=== PATIENT | male | born 1995 | race Caucasian/White ===

== ENCOUNTER 2017-07-10 16:18 | Inpatient (IN) | payer MEDICAID, OTHER ==
[~2017-07-10] VITALS: Ht 170.2 cm; Wt 62.1 kg
[2017-07-10] VITALS (14 sets, daily range): BP systolic 87–124; BP diastolic 35–59; PULSE 84–110; RESP 18–27; Ht 170.2 cm; Wt 62.1 kg
[~2017-07-10 16:18] MED LIST: CEFAZOLIN 1 GM INJ ONE; metroNIDAZOLE 500 MG/100 ML NS IVPB ONE
[2017-07-10] MEDS ORDERED: ONDANSETRON 4 MG INJ IV STA (17:35)
[2017-07-10] MEDS ORDERED: morphine 4 MG/ML VIAL IV STA (17:35)
[2017-07-10] MEDS ORDERED: SOD CHLORIDE 0.9% 1,000 ML IV STA (17:35)
--- NOTE | 2017-07-10 17:39 | ERD ---
ER Documentation Chief Complaint Chief Complaint RLQ PAIN RADIATING TO GROIN W/VOMITTING SINCE AM HPI This 22-year-old male patient presents to emergency department today for evaluation of sudden onset of RLQ pain with vomiting , pt reports hot and cold chills . denies hx of ABD pain 8/10 on pain scale ROS All systems reviewed and are negative except as per history of present illness. Allergies Allergies: Coded Allergies: No Known Allergy (Unverified , 07/10/17) PMhx/Soc Medical and Surgical Hx: pt denies Medical Hx, pt denies Surgical Hx History of Surgery: No Anesthesia Reaction: No Hx Neurological Disorder: No Hx Respiratory Disorders: No Hx Cardiac Disorders: No Hx Psychiatric Problems: No Hx Miscellaneous Medical Probl: No Hx Alcohol Use: No Hx Substance Use: No Hx Tobacco Use: No Smoking Status: Never smoker Physical Exam Vitals Vital Signs Date Time Temp Pulse Resp B/P Pulse Ox O2 Delivery O2 Flow Rate FiO2 07/10/17 16:25 97.9 84 16 107/64 98 Physical Exam Const: Well-appearing, 22-year-old male patient with dry mucous membranes, obvious discomfort, no acute distress Head: Eyes: Normal Conjunctiva ENT: Normal External Ears, Nose and Mouth. Neck: Resp: Clear to auscultation bilaterally Cardio: Regular rate and rhythm, no murmurs Abd: Abdomen is symmetric, distended, tympanic to percussion, positive McBurney's point tenderness, psoas sign positive Skin: Back: No midline or flank tenderness Ext: Neur: Awake and alert Psych: Normal Mood and Affect Result Diagram: 07/10/17 1439 07/10/17 1439 Results 24 hrs Laboratory Tests Test 07/10/17 14:39 07/10/17 17:45 White Blood Count 21.010^3/ul Red Blood Count 4.8610^6/ul Hemoglobin 16.0g/dl Hematocrit 44.0% Mean Corpuscular Volume 90.5fl Mean Corpuscular Hemoglobin 32.9pg Mean Corpuscular Hemoglobin Concent 36.4g/dl Red Cell Distribution Width 12.0% Platelet Count 71583^3/UL Mean Platelet Volume 10.4fl Neutrophils % 91.3% Lymphocytes % 2.9% Monocytes % 5.3% Eosinophils % 0.0% Basophils % 0.1% Nucleated Red Blood Cells % 0.0/100WBC Neutrophils # 19.210^3/ul Lymphocytes # 0.610^3/ul Monocytes # 1.110^3/ul Eosinophils # 0.010^3/ul Basophils # 0.010^3/ul Nucleated Red Blood Cells # 0.010^3/ul Sodium Level 146mmol/L Potassium Level 4.0mmol/L Chloride Level 103mmol/L Carbon Dioxide Level 27mmol/L Anion Gap 20 Blood Urea Nitrogen 8mg/dl Creatinine 0.72mg/dl Glucose Level 104mg/dl Calcium Level 10.2mg/dl Total Bilirubin 0.7mg/dl Direct Bilirubin 0.00mg/dl Indirect Bilirubin 0.7mg/dl Aspartate Amino Transf (AST/SGOT) 36IU/L Alanine Aminotransferase (ALT/SGPT) 57IU/L Alkaline Phosphatase 85IU/L Total Protein 8.5g/dl Albumin 5.1g/dl Globulin 3.40g/dl Albumin/Globulin Ratio 1.50 Lipase 79U/L Urine Color YELLOW Urine Clarity CLEAR Urine pH 8.0 Urine Specific [place] 1.020 Urine Ketones NEGATIVEmg/dL Urine Nitrite NEGATIVEmg/dL Urine Bilirubin NEGATIVEmg/dL Urine Urobilinogen NEGATIVEmg/dL Urine Leukocyte Esterase NEGATIVELeu/ul Urine Microscopic RBC 0/HPF Urine Microscopic WBC 0/HPF Urine Mucus MODERATE/HPF Urine Hemoglobin NEGATIVEmg/dL Urine Glucose NEGATIVEmg/dL Urine Total Protein 1+mg/dl Current Medications Medications (Trade) Dose Ordered Sig/Royce Route PRN Reason Start Time Stop Time Status Last Admin Dose Admin Sodium Chloride (NS) 1,000 ml @ 1,000 mls/hr Q1H STAT IV 07/10/17 17:35 07/10/17 18:34 DC 07/10/17 17:46 Morphine Sulfate (morphine) 4 mg ONCE STAT IV 07/10/17 17:35 07/10/17 17:40 DC 07/10/17 17:46 Ondansetron HCl (Zofran Inj) 4 mg ONCE STAT IV 07/10/17 17:35 07/10/17 17:40 DC 07/10/17 17:45 Famotidine 20 mg 20 mg ONCE ONCE IV 07/10/17 18:00 07/10/17 18:01 DC 07/10/17 17:45 Ceftriaxone Sodium 50 ml @ 100 mls/hr ONCE ONCE IVPB 07/10/17 19:00 11/20/17 19:29 Metronidazole 100 ml @ 100 mls/hr ONCE ONCE IVPB 07/10/17 19:00 07/10/17 19:59 Sodium Chloride (NS) 1,000 ml @ 1,000 mls/hr Q1H ONCE IV 07/10/17 19:00 07/10/17 19:59 Ondansetron HCl (Zofran Inj) 4 mg BRIDGE ORDER PRN IV NAUSEA AND/OR VOMITING 07/10/17 19:00 07/11/17 18:59 Acetaminophen (Tylenol Tab) 650 mg ER BRIDGE PRN PO MILD PAIN/FEVER 07/10/17 19:00 07/11/17 18:59 Interpretation text CBC shows no evidence of hemorrhage WBCs are 21 with a left shift. Chemistry shows no evidence of significant electrolyte abnormalities or renal insufficiency Liver function tests shows no evidence of acute biliary or hepatic dysfunction Lipase shows no evidence of acute pancreatitis Urinalysis negative for evidence of infection, positive for anuria this is not an abnormal finding with fasting. Procedures/MDM PROCEDURE: US Abdomen. CLINICAL INDICATION: Abdominal pain TECHNIQUE: Multiple real-time images were acquired of the patient's abdomen and right lower quadrant utilizing a high resolution transducer. COMPARISON: None FINDINGS: There is a noncompressible fluid-filled structure in the right lower quadrant measuring 9 mm, suspicious for a dilated fluid filled appendix. No free fluid is identified. RPTAT: AA IMPRESSION: Ultrasound findings suspicious for acute appendicitis. Electronically viewed and signed by Isaac Degroot Physician on 07/10/2017 18:33 This 22-year-old male patient presents to emergency department for evaluation of right lower quadrant abdominal pain, patient reports symptoms started this morning and progressively worsened all day. Patient has vomited numerous times , he reports he has not been able to eat without vomiting, reports tactile fever with cold chills, states he feels dehydrated. Emergency room course includes history and physical exam, abdomen exam is positive for suspected appendicitis, psoas sign positive, McBurney's point tenderness. Plan to work patient up for an acute abdomen, diagnostic serology, IV fluids, pain medication , antiemetic, and H2 linda. WBCs elevated to 21 with left shift, radiologist' s interpretation of ultrasound, ultrasound findings suspicious for acute appendicitis. This case discussed with supervising physician Dr. Obrien, Dr. Obrien will call surgery planned for admission, plan of care discussed with patient, he verbalizes understanding and agrees with plan of care, [id number] PACU comes to picking supervisor patient. Departure Diagnosis: Primary Impression: Appendicitis Appendicitis type: acute appendicitis Acute appendicitis type: unspecified acute appendicitis type Qualified Code: K35.80 - Acute appendicitis, unspecified acute appendicitis type Condition: Good DARLINGZULEMA Jul 10, 2017 17:39
[2017-07-10] MEDS ORDERED: FAMOTIDINE 20 MG INJ IV ONE (18:00)
[2017-07-10 18:09] LABS: BASOPHILS % 0.1 % (0.0-2.0); LYMPHOCYTES # 0.6 10^3/ul (0.8-2.9); LYMPHOCYTES % 2.9 % (18.0-55.0); MEAN CORPUSCULAR HEMOGLOBIN 32.9 pg (29.0-33.0); MEAN CORPUSCULAR HGB CONC 36.4 g/dl (32.0-37.0); MEAN CORPUSCULAR VOLUME 90.5 fl (72.0-104.0); MEAN PLATELET VOLUME 10.4 fl (7.4-10.4); MONOCYTE # 1.1 10^3/ul (0.3-0.9); MONOCYTES % 5.3 % (0.0-13.0); NEUTROPHIL # 19.2 10^3/ul (1.6-7.5); NEUTROPHILS % 91.3 % (30.0-74.0); PLATELET COUNT 223 10^3/UL (140-415); RED BLOOD COUNT 4.86 10^6/ul (4.70-6.10)
[2017-07-10 18:13] LABS: ADD UMIC YES; UR ASCORBIC ACID NEGATIVE (NEGATIVE); UR BILIRUBIN (Dip) NEGATIVE (NEGATIVE); UR BLOOD (Dip) NEGATIVE (NEGATIVE); UR CLARITY CLEAR (CLEAR); UR COLOR YELLOW (YELLOW); UR GLUCOSE (Dip) NEGATIVE (NEGATIVE); UR KETONES (Dip) NEGATIVE (NEGATIVE); UR LEUKOCYTE ESTERASE (Dip) NEGATIVE Leu/ul (NEGATIVE); UR MUCUS MODERATE /HPF (NONE SEEN); UR NITRITE (Dip) NEGATIVE (NEGATIVE); UR RBC 0 /HPF (0-5); UR TOTAL PROTEIN (Dip) 1+ mg/dl (NEGATIVE); UR UROBILINOGEN (Dip) NEGATIVE (NEGATIVE)
[2017-07-10 18:32] LABS: ALBUMIN 5.1 g/dl (3.3-4.9); ALBUMIN/GLOBULIN RATIO 1.5; BILIRUBIN,INDIRECT 0.7 mg/dl (0-1.1); BILIRUBIN,TOTAL 0.7 mg/dl (0.2-1.3); CALCIUM 10.2 mg/dl (8.4-10.2); CREATININE 0.72 mg/dl (0.61-1.24); TOTAL PROTEIN 8.5 g/dl (6.1-8.1)
--- NOTE | 2017-07-10 18:33 | RADRPT ---
PROCEDURE: US Abdomen. CLINICAL INDICATION: Abdominal pain TECHNIQUE: Multiple real-time images were acquired of the patient's abdomen and right lower quadra nt utilizing a high resolution transducer. COMPARISON: None FINDINGS: There is a noncompressible fluid-filled structure in the right lower quadrant measuring 9 mm, suspic ious for a dilated fluid filled appendix. No free fluid is identified. RPTAT: AA IMPRESSION: Ultrasound findings suspicious for acute appendicitis. Physician Linda Date Time Electronically viewed and signed by Isaac Degroot Physician on 07/10/2017 18:33 RA/
[2017-07-10] MEDS ORDERED: CEFTRIAXONE 1 GM/50 ML (PMX) 50 ML IVPB ONE (19:00)
[2017-07-10] MEDS ORDERED: ONDANSETRON 4 MG INJ IV PRN ×3 (19:00→20:00)
[2017-07-10] MEDS ORDERED: SOD CHLORIDE 0.9% 1,000 ML IV ONE (19:00)
[2017-07-10] MEDS ORDERED: ACETAMINOPHEN 325 MG TAB PO PRN ×3 (19:00→20:00)
[2017-07-10] MEDS ORDERED: metroNIDAZOLE 500 MG/NS (PMX) 100 ML IVPB ONE (19:00)
[2017-07-10] MEDS ORDERED: LIDOCAINE 1%/EPI 30 ML INJ ONE (19:07)
[2017-07-10] MEDS ORDERED: BUPIVACAINE 0.25% (MPF) 30 ML INJ ONE (19:07)
[2017-07-10] MEDS ORDERED: SOD CHLORIDE 0.9% 1,000 ML IV SCH (19:20)
[2017-07-10] MEDS ORDERED: DOCUSATE SODIUM 100 MG CAP PO PRN (19:30)
[2017-07-10] MEDS ORDERED: HYDROCODONE/APAP (5/325) TAB PO PRN ×2 (19:30→20:00)
[2017-07-10] MEDS ORDERED: NA PHOSPHATE/BIPHOS 133 ML ENEMA PR PRN (19:30)
[2017-07-10] MEDS ORDERED: MAGNESIUM HYDROXIDE 30ML CUP PO PRN (19:30)
[2017-07-10] MEDS ORDERED: ALBUTEROL/IPRATROPIUM (NEB) 3 ML AMP HHN PRN (19:30)
[2017-07-10] MEDS ORDERED: hydrALAzine 20 MG INJ IV PRN (19:30)
[2017-07-10] MEDS ORDERED: morphine 2 MG INJ IV PRN ×2 (19:30→20:00)
[2017-07-10] MEDS ORDERED: LORAZEPAM 2 MG INJ IV PRN (19:30)
[2017-07-10] MEDS ORDERED: NITROGLYCERIN (SL) 0.4 MG TAB SL PRN (19:30)
[2017-07-10] MEDS ORDERED: NACL 0.9% 3 ML SYG IV SCH (19:30)
--- NOTE | 2017-07-10 19:35 | CONS ---
Date/Time of Note Date/Time of Note DATE: 07/10/17 TIME: 19:31 Assessment/Plan Assessment/Plan Additional Assessment/Plan Acute appendicitis I discussed laparoscopic, possible open appendectomy with the patient. All benefits, risks, alternatives were discussed in detail. All questions answered. The patient elects to proceed Consultation Date/Type/Reason Admit Date/Time Date of Consultation: Jul 10, 2017 Hx of Present Illness The patient is a 22-year-old female with acute onset of right lower quadrant pain. He had nausea and emesis. His pain persisted throughout the day and presented to the ER at [facility]. His workup in the ER was consistent with acute appendicitis I was called for consultation. Past Medical History Medical History: no pertinent history Past Surgical History Past Surgical Hx: no surgical history Family History Significant Family History: no pertinent family hx Social History Alcohol Use: none Smoking Status: Current every day smoker Drug Use: none Exam/Review of Systems Vital Signs Vitals Vital Signs Date Time Temp Pulse Resp B/P Pulse Ox O2 Delivery O2 Flow Rate FiO2 07/10/17 16:25 97.9 84 16 107/64 98 Exam Constitutional: alert, oriented, well developed Head: normocephalic Eyes: nl conjunctiva ENMT: nl external ears & nose Neck: supple Respiratory: clear to auscultation Cardiovascular: regular rate and rhythm Gastrointestinal: other (Significant right lower quadrant tenderness), soft Musculoskeletal: nl extremities to inspection Skin: nl turgor Lymph: nl lymph nodes Results Result Diagram: 07/10/17 1439 07/10/17 1439 Results 24 hrs Laboratory Tests Test 07/10/17 14:39 07/10/17 17:45 White Blood Count 21.0 H Red Blood Count 4.86 Hemoglobin 16.0 Hematocrit 44.0 Mean Corpuscular Volume 90.5 Mean Corpuscular Hemoglobin 32.9 Mean Corpuscular Hemoglobin Concent 36.4 Red Cell Distribution Width 12.0 Platelet Count 223 Mean Platelet Volume 10.4 Neutrophils % 91.3 H Lymphocytes % 2.9 L Monocytes % 5.3 Eosinophils % 0.0 Basophils % 0.1 Nucleated Red Blood Cells % 0.0 Neutrophils # 19.2 H Lymphocytes # 0.6 L Monocytes # 1.1 H Eosinophils # 0.0 Basophils # 0.0 Nucleated Red Blood Cells # 0.0 Sodium Level 146 H Potassium Level 4.0 Chloride Level 103 Carbon Dioxide Level 27 Anion Gap 20 H Blood Urea Nitrogen 8 Creatinine 0.72 Glucose Level 104 Calcium Level 10.2 Total Bilirubin 0.7 Direct Bilirubin 0.00 Indirect Bilirubin 0.7 Aspartate Amino Transf (AST/SGOT) 36 Alanine Aminotransferase (ALT/SGPT) 57 Alkaline Phosphatase 85 Total Protein 8.5 H Albumin 5.1 H Globulin 3.40 H Albumin/Globulin Ratio 1.50 Lipase 79 Urine Color YELLOW Urine Clarity CLEAR Urine pH 8.0 Urine Specific [place] 1.020 Urine Ketones NEGATIVE Urine Nitrite NEGATIVE Urine Bilirubin NEGATIVE Urine Urobilinogen NEGATIVE Urine Leukocyte Esterase NEGATIVE Urine Microscopic RBC 0 Urine Microscopic WBC 0 Urine Mucus MODERATE Urine Hemoglobin NEGATIVE Urine Glucose NEGATIVE Urine Total Protein 1+ H Imaging Free Text/Dictation PROCEDURE: US Abdomen. CLINICAL INDICATION: Abdominal pain TECHNIQUE: Multiple real-time images were acquired of the patient's abdomen and right lower quadrant utilizing a high resolution transducer. COMPARISON: None FINDINGS: There is a noncompressible fluid-filled structure in the right lower quadrant measuring 9 mm, suspicious for a dilated fluid filled appendix. No free fluid is identified. RPTAT: AA IMPRESSION: Ultrasound findings suspicious for acute appendicitis. Medications Medications Current Medications Ceftriaxone Sodium 50 ml @ 100 mls/hr ONCE ONCE IVPB Last administered on 19:08; Admin Dose 100 MLS/HR; Start 07/10/17 at 19:00; Stop 07/10/17 at 19:29 Metronidazole 100 ml @ 100 mls/hr ONCE ONCE IVPB ; Start 07/10/17 at 19:00; Stop 07/10/17 at 19:59 Sodium Chloride (NS) 1,000 ml @ 1,000 mls/hr Q1H ONCE IV Last administered on 07/10/17 19:08; Admin Dose 1,000 MLS/HR; Start 07/10/17 at 19:00; Stop 07/10 at 19:59 Ondansetron HCl (Zofran Inj) 4 mg Q6H PRN IV NAUSEA AND/OR VOMITING; Start at 19:30 Acetaminophen (Tylenol Tab) 650 mg Q6H PRN PO PAIN LEVEL 1-3 OR FEVER; Start 07/10/17 at 19:30 Acetaminophen/ Hydrocodone Bitart ([place] (5/325)) 1 tab Q6H PRN PO MODERATE PAIN LEVEL 4-6; Start 07/10/17 at 19:30 Morphine Sulfate (morphine) 2 mg Q4H PRN IV SEVERE PAIN LEVEL 7-10; Start at 19:30 Docusate Sodium (Colace) 100 mg Q12H PRN PO CONSTIPATION; Start 07/10/17 at 19 :30 Magnesium Hydroxide (Milk Of Mag) 30 ml DAILY PRN PO CONSTIPATION; Start 07/10 at 19:30 Sodium Biphosphate/ Sodium Phosphate (Fleet Enema) 133 ml DAILY PRN [place] CONSTIPATION; Start 07/10/17 at 19:30; Status UNV Pantoprazole (Protonix Tab) 40 mg DAILY@06 PO ; Start 07/11/17 at 06:00; Status UNV Heparin Sodium (Porcine) (Heparin (5000 Units/0.5 ml)) 5,000 unit Q12 SC ; Start 07/10/17 at 21:00; Status UNV Lorazepam 0.5 mg 0.5 mg Q6H PRN IV ANXIETY; Start 07/10/17 at 19:30; Status UNV Sodium Chloride 1,000 ml @ 100 mls/hr Q10H IV ; Start 07/10/17 at 19:20; Status UNV Piperacillin Sod/ Tazobactam Sod (Zosyn 3.375gm/ 50 ml (Pmx)) 50 ml @ 100 mls/ hr Q6 IVPB ; Start 07/11/17 at 00:00; Status UNV Hydralazine HCl (Apresoline) 10 mg Q6H PRN IV ELEVATED BLOOD PRESSURE; Start 07/10/17 at 19:30; Status UNV Nitroglycerin (Nitroglycerin (Sl Tab) 0.4 Mg) 1 tab Q5M PRN SL ANGINA; Start 07/10/17 at 19:30; Status UNV SAL GOEL MD Jul 10, 2017 19:35
--- NOTE | 2017-07-10 19:39 | SIPON ---
Date/Time of Note Date/Time of Note DATE: 07/10/17 TIME: 19:38 Operative Report Preoperative Diagnosis Acute appendicitis Postoperative Diagnosis Same Operation/Procedure Performed Laparoscopic appendectomy Surgeon see signature line therapy assistant None Anesthesia: general Estimated blood loss: minimal Transfusion Required none Specimen Appendix Grafts/Implants none Complications none SAL GOEL MD Jul 10, 2017 19:39
[2017-07-10] MEDS ORDERED: ROCURONIUM 50 MG INJ ONE (19:40)
[2017-07-10] MEDS ORDERED: ROPIVACAINE 0.2% 20 ML VIAL ONE (19:40)
[2017-07-10] MEDS ORDERED: PROPOFOL 20 ML ONE (19:40)
[2017-07-10] MEDS ORDERED: MIDAZOLAM 1 MG/ML 2 ML INJ ONE (19:40)
--- NOTE | 2017-07-10 19:41 | OPR ---
Date/Time of Note Date/Time of Note DATE: 07/10/17 TIME: 19:39 Operative Report Procedure Date: Jul 10, 2017 Preoperative Diagnosis Acute appendicitis Postoperative Diagnosis Same Operation/Procedure Performed Laparoscopic appendectomy Surgeon see signature line Phlebotomy Services Representative None Anesthesia Type: general Anesthesiologist: TIKA BOLANOS MD Estimated Blood Loss: minimal Transfusion none Specimen Appendix Grafts/Implants none Tubes/Drains None Complications none Disposition: PACU Indications The patient is a 22year-old male with a acute onset of generalized abdominal pain, localizing to the right lower quadrant. He presented to the ER and was diagnosed with acute appendicitis. I discussed laparoscopic, possible open appendectomy with the patient. All benefits, risks, alternatives discussed in detail. All questions answered. The patient elected to proceed. Procedure Description The patient was brought to operative room placed supine on the table. After preop antibiotics and SCDs were applied, the patient was intubated and the abdomen was cleaned, prepped, and draped in usual sterile fashion. All incisions were infiltrated with 1 spotting with epi house Marcaine prior to incision. A 5 mm incision was made in the umbilicus. Using a 5 minute laparoscopic containing trocar, the abdomen was entered direct vision insufflated 50 mm of CO2. Under direct vision, the following trochars were placed: A 5 mm right lower quadrant and a left lower quadrant 12 mm. There was some serosanguineous fluid in the pelvis. The appendix was visualized and was consistent with acute appendicitis.. I made a rent in the mesentery to base the appendix divided the cecum at the base of the appendix with a 35 mm Endo linear cutter white load. The appendiceal mesentery was then divided with a 35 mm Endo linear cutter white load. The appendix was then removed the 12 mm trocar site. I visualized my staple lines. I then turned my attention to the pelvis. I irrigated out the right lower quadrant and pelvis until effluent was clear. Desufflated the abdomen moved all trochars. The fascia of the 12 mm trocar site was closed with 0 Vicryl. Skin incisions were all closed with 4 Monocryl, Mastisol, and Steri-Strips. The patient tolerated the procedure well, was extubated in the OR, transferred to the recovery room stable condition. SAL GOEL MD Jul 10, 2017 19:41 SAL GOEL MD Jul 10, 2017 19:41
[2017-07-10] MEDS ORDERED: IBUPROFEN 600 MG TAB PO PRN (20:00)
[2017-07-10] MEDS ORDERED: ONDANSETRON 4 MG INJ ONE (20:01)
[2017-07-10] MEDS ORDERED: METOCLOPRAMIDE 10 MG INJ ONE (20:01)
[2017-07-10] MEDS ORDERED: KETOROLAC 30 MG INJ ONE (20:01)
[2017-07-10] MEDS ORDERED: DEXAMETHASONE 4 MG/ML 1 ML INJ ONE (20:02)
[2017-07-10] MEDS ORDERED: ACETAMINOPHEN 1000MG/100ML IV 100 ML ONE (20:02)
[2017-07-10] MEDS ORDERED: SUGAMMADEX SODIUM 200 MG/2 ML VIAL IV ONE (20:11)
[2017-07-10] MEDS ORDERED: MEPERIDINE 100 MG INJ ONE (20:15)
[2017-07-10 20:17] LABS: INR 0.93; PROTIME 12.5 Sec (12.2-14.2)
[2017-07-10 20:18] LABS: PARTIAL THROMBOPLASTIN TIME 27.2 Sec (25.0-35.0)
--- NOTE | 2017-07-10 20:28 | EN ---
Date/Time of Note Date/Time of Note DATE: 07/10/17 TIME: 20:27 ER Progress Note Evaluated this patient along with the PA does have symptoms, laboratories and imaging consistent with acute appendicitis. I spoke with Dr. Perdue, surgeon on -call who will come in in perform surgery on the patient tonight. I also ordered coags, additional IV fluid, Rocephin and Flagyl, Dr. crum is admitting this patient to medical surgical floor although he is going straight to the OR from the emergency room. SARAH REES DO Jul 10, 2017 20:28
[2017-07-10] MEDS ORDERED: HEPARIN 5,000 UNIT/0.5 ML VIAL SC SCH (21:00)
[2017-07-10] MEDS: D5-NS + KCL 20 MEQ 1,000 ML IV SCH (23:39)
[2017-07-11] MEDS ORDERED: PIPER-TAZO 3.375 GM IV (PMX) 50 ML IVPB SCH
[2017-07-11 01:00] VITALS: BP 114/55; PULSE 87; RESP 20
[2017-07-11 05:30] VITALS: BP 98/57; PULSE 83; RESP 20
[2017-07-11] MEDS: D5-NS + KCL 20 MEQ 1,000 ML IV SCH (05:35)
[2017-07-11 05:59] LABS: BASOPHILS % 0.1 % (0.0-2.0); HEMATOCRIT 38.4 % (42.0-52.0); HEMOGLOBIN 13.5 g/dl (14.0-18.0); LYMPHOCYTES # 0.7 10^3/ul (0.8-2.9); LYMPHOCYTES % 4.6 % (18.0-55.0); MEAN CORPUSCULAR HEMOGLOBIN 32.7 pg (29.0-33.0); MEAN CORPUSCULAR HGB CONC 35.2 g/dl (32.0-37.0); MEAN PLATELET VOLUME 10.5 fl (7.4-10.4); MONOCYTE # 0.8 10^3/ul (0.3-0.9); MONOCYTES % 5.3 % (0.0-13.0); NEUTROPHIL # 13.9 10^3/ul (1.6-7.5); NEUTROPHILS % 89.5 % (30.0-74.0); PLATELET COUNT 210 10^3/UL (140-415); RED BLOOD COUNT 4.13 10^6/ul (4.70-6.10); RED CELL DISTRIBUTION WIDTH 12.4 % (11.5-14.5); WHITE BLOOD COUNT 15.6 10^3/ul (4.8-10.8)
[2017-07-11] MEDS: PANTOPRAZOLE (EC) 40 MG TAB PO SCH (06:04)
[2017-07-11] MEDS: ENOXAPARIN 40 MG/0.4 ML SYG SC SCH (06:10)
[2017-07-11 06:37] LABS: CHOL/HDL RATIO 2.4 RATIO
[2017-07-11 06:43] LABS: CALCIUM 9.5 mg/dl (8.4-10.2); CREATININE 0.77 mg/dl (0.61-1.24); MAGNESIUM 1.8 mg/dl (1.7-2.5); PHOSPHORUS 3.5 mg/dl (2.5-4.9); POTASSIUM 5.4 mmol/L (3.5-5.1)
[2017-07-11 07:13] LABS: THYROID STIMULATING HORMONE 0.044 MIU/L (0.465-4.680)
[2017-07-11 07:21] VITALS: BP 98/51; RESP 18
--- NOTE | 2017-07-11 09:07 | HP ---
Date/Time of Note Date/Time of Note DATE: 07/11/17 TIME: 08:59 Assessment/Plan VTE Prophylaxis VTE Prophylaxis Intervention: SCD's Lines/Catheters IV [facility]ter Type ([facility] Peripheral IV Urinary Cath still in place: No Assessment/Plan Assessment/Plan 1. Acute appendicitis Status post laparoscopic appendectomy Advance diet as tolerated Pain management Follow-up surgery recommendations 2. Leukocytosis, secondary to above See #1 3. Subclinical hyperthyroidism -Repeat lab for confirmation -Patient is not symptomatic and no atrial fibrillation -This is likely from the current illness. If repeat lab shows persistent abnormality, he needs repeat lab and outpatient follow-up in about 3 months. HPI/ROS Admit Date/Time Admit Date/Time Hx of Present Illness This is a 22-year-old male with no significant past medical history who presents to the ER complaining of abdominal pain. Pain is mainly localized in the right lower quadrant area. CT abdomen pelvis was suspicious for appendicitis. Patient has been taken to the OR and underwent laparoscopic appendectomy. Initial WBC was 21,000 with latest one being the 15,000. Patient also was low TSH and normal free T4, consistent with a subclinical hyperthyroidism. PMH/Family/Social Past Medical History Medical History: no pertinent history Past Surgical History Past Surgical Hx: no surgical history Social History Alcohol Use: none Smoking Status: Current every day smoker Drug Use: none Exam/Review of Systems Vital Signs Vitals Vital Signs Date Time Temp Pulse Resp B/P Pulse Ox O2 Delivery O2 Flow Rate FiO2 07/11/17 07:21 97.9 85 18 98/51 97 07/11/17 05:30 Room Air 07/10/17 20:48 8.0 Intake and Output 07/10/17 07/10/17 07/11/17 15:00 23:00 07:00 Intake Total 600 ml 1100 ml Output Total 5 ml 1500 ml Balance 595 ml -400 ml Exam Constitutional: alert, oriented, well developed Head: atraumatic, normocephalic Eyes: EOMI, PERRL Respiratory: clear to auscultation, normal air movement Cardiovascular: regular rate and rhythm Gastrointestinal: soft, surgical scars, tender Extremities: normal pulses Labs Result Diagram: 07/11/17 0535 07/11/17 0534 Medications Medications Current Medications Ondansetron HCl (Zofran Inj) 4 mg Q6H PRN IV NAUSEA AND/OR VOMITING; Start at 19:30 Acetaminophen (Tylenol Tab) 650 mg Q6H PRN PO PAIN LEVEL 1-3 OR FEVER; Start 07/10/17 at 19:30 Acetaminophen/ Hydrocodone Bitart ([place] (5/325)) 1 tab Q6H PRN PO MODERATE PAIN LEVEL 4-6; Start 07/10/17 at 19:30 Morphine Sulfate (morphine) 2 mg Q4H PRN IV SEVERE PAIN LEVEL 7-10; Start at 19:30 Docusate Sodium (Colace) 100 mg Q12H PRN PO CONSTIPATION; Start 07/10/17 at 19 :30 Magnesium Hydroxide (Milk Of Mag) 30 ml DAILY PRN PO CONSTIPATION; Start 07/10 at 19:30 Sodium Biphosphate/ Sodium Phosphate (Fleet Enema) 133 ml DAILY PRN [place] CONSTIPATION; Start 07/10/17 at 19:30 Pantoprazole (Protonix Tab) 40 mg DAILY@06 PO Last administered on 07/11/17t 06:04; Admin Dose 40 MG; Start 07/11/17 at 06:00 Lorazepam (Ativan) 0.5 mg Q6H PRN IV ANXIETY; Start 07/10/17 at 19:30 Hydralazine HCl (Apresoline) 10 mg Q6H PRN IV ELEVATED BLOOD PRESSURE; Start 07/10/17 at 19:30 Nitroglycerin (Nitroglycerin (Sl Tab) 0.4 Mg) 1 tab Q5M PRN SL ANGINA; Start 07/10/17 at 19:30 Ondansetron HCl (Zofran Inj) 4 mg Q6H PRN IV NAUSEA AND/OR VOMITING; Start at 20:00 Acetaminophen (Tylenol Tab) 650 mg Q6H PRN PO PAIN LEVEL 1-3 OR FEVER; Start 07/10/17 at 20:00 Ibuprofen (Motrin) 600 mg Q6H PRN PO PAIN LEVEL 1-3; Start 07/10/17 at 20:00 Morphine Sulfate (morphine) 2 mg Q2H PRN IV PAIN LEVEL 8-10; Start 07/10/17 at 20:00 Acetaminophen/ Hydrocodone Bitart 1 tab 1 tab Q6H PRN PO PAIN LEVEL 4-7; Start 07/10/17 at 20:00 Potassium Chloride/Dextrose/ Sod Cl (D5-NS + KCl 20 Meq) 1,000 ml @ 100 mls/hr Q10H IV Last administered on 07/10/17 23:39; Admin Dose 100 MLS/HR; Start at 19:35 Enoxaparin Sodium (Lovenox) 40 mg DAILY@07 SC Last administered on 07/11/17 06:10; Admin Dose 40 MG; Start 07/11/17 at 07:00 Influenza Virus Vaccine (Fluzone) 0.5 ml ONCE ONCE IM* ; Start 07/12/17 at 09: 00; Stop 07/12/17 at 09:01 ESTELA RAZO MD Jul 11, 2017 09:07
--- NOTE | 2017-07-11 11:36 | PN ---
Date/Time of Note Date/Time of Note DATE: 07/11/17 TIME: 11:36 Assessment/Plan VTE Prophylaxis VTE Prophylaxis Intervention: ambulation Lines/Catheters IV C[facility]ter Type [facility]from [facility]): Peripheral IV Urinary Cath still in place: No Assessment/Plan Chief Complaint/Hosp Course 22-year-old male with no significant past medical history, who presented to the emergency room with abdominal pain found to have acute appendicitis. 1. Acute appendicitis. Status post laparoscopic appendectomy on 07/10/2017. -Continue IV fluids, and pain medications. -Postoperative diet and abx per surgery. 2. Leukocytosis secondary to #1. Improving. Treatment as above. 3. Hyperkalemia. Will repeat potassium level and treat accordingly. 4. Hypernatremia, likely dehydration. -Continue IV fluids. Patient was seen in collaboration with Dr. Reynoso Problems: Subjective 24 Hr Interval Summary Free Text/Dictation Status post laparoscopic appendectomy. Doing well. On clear diet which she is tolerating now. Exam/Review of Systems Vital Signs Vitals Vital Signs Date Time Temp Pulse Resp B/P Pulse Ox O2 Delivery O2 Flow Rate FiO2 07/11/17 07:21 97.9 85 18 98/51 97 07/11/17 05:30 Room Air 07/10/17 20:48 8.0 Intake and Output 07/10/17 07/10/17 07/11/17 15:00 23:00 07:00 Intake Total 600 ml 1100 ml Output Total 5 ml 1500 ml Balance 595 ml -400 ml Exam General: Well developed,adequately built, not in any acute distress . HEENT: Normocephalic, Atraumatic, No laceration or hematoma; Eyes: PEERL, Conjunctiva clear, Anicteric sclera Neck: Supple without any lymphadenopathy, nontender, no JVD, no carotid bruits, trachea midline, no thyromegaly Cardiac: S1, S2 auscultated, regular rhythm and rate, no mumurs or gallop Pulmonary: Normal respiratory effort. Chest clear to auscultation bilaterally, no adventitious breath sounds GI: Laparoscopic incision site intact. Mild tenderness to abdomen. Abdomen normal to inspection. Soft, non- distended, no masses, no rebound tenderness or guarding. Bowel sounds active on all four quadrants Genitourinary: Deferred Extremities: No cyanosis, clubbing, or edema. Pulses [2+] bilaterally. Full ROM on all four extremities. No focal weakness appreciated. Neurologic: Alert to person, place, time, and situation. Affect appropriate, intact sensation. Skin: Clean,dry, and intact. No ecchymosis, no rashes, or lesions Results Result Diagram: 07/11/17 0535 07/11/17 0534 Results 24 hrs Laboratory Tests Test 07/10/17 14:39 07/10/17 17:45 07/10/17 18:00 07/11/17 05:34 White Blood Count 21.0 H Red Blood Count 4.86 Hemoglobin 16.0 Hematocrit 44.0 Mean Corpuscular Volume 90.5 Mean Corpuscular Hemoglobin 32.9 Mean Corpuscular Hemoglobin Concent 36.4 Red Cell Distribution Width 12.0 Platelet Count 223 Mean Platelet Volume 10.4 Neutrophils % 91.3 H Lymphocytes % 2.9 L Monocytes % 5.3 Eosinophils % 0.0 Basophils % 0.1 Nucleated Red Blood Cells % 0.0 Neutrophils # 19.2 H Lymphocytes # 0.6 L Monocytes # 1.1 H Eosinophils # 0.0 Basophils # 0.0 Nucleated Red Blood Cells # 0.0 Sodium Level 146 H 144 Potassium Level 4.0 5.4 H Chloride Level 103 108 Carbon Dioxide Level 27 29 Anion Gap 20 H 12 # Blood Urea Nitrogen 8 7 Creatinine 0.72 0.77 Glucose Level 104 123 Calcium Level 10.2 9.5 Total Bilirubin 0.7 Direct Bilirubin 0.00 Indirect Bilirubin 0.7 Aspartate Amino Transf (AST/SGOT) 36 Alanine Aminotransferase (ALT/SGPT) 57 Alkaline Phosphatase 85 Total Protein 8.5 H Albumin 5.1 H Globulin 3.40 H Albumin/Globulin Ratio 1.50 Lipase 79 Urine Color YELLOW Urine Clarity CLEAR Urine pH 8.0 Urine Specific [place] 1.020 Urine Ketones NEGATIVE Urine Nitrite NEGATIVE Urine Bilirubin NEGATIVE Urine Urobilinogen NEGATIVE Urine Leukocyte Esterase NEGATIVE Urine Microscopic RBC 0 Urine Microscopic WBC 0 Urine Mucus MODERATE Urine Hemoglobin NEGATIVE Urine Glucose NEGATIVE Urine Total Protein 1+ H Prothrombin Time 12.5 Prothrombin Time Ratio 1.0 INR International Normalized Ratio 0.93 Activated Partial Thromboplast Time 27.2 Free Thyroxine 1.05 Hemoglobin A1c 4.9 Phosphorus Level 3.5 Magnesium Level 1.8 Triglycerides Level 38 Cholesterol Level 122 LDL Cholesterol, Calculated 64 HDL Cholesterol 50 Cholesterol/HDL Ratio 2.4 Thyroid Stimulating Hormone (TSH) 0.044 L Test 07/11/17 05:35 White Blood Count 15.6 #H Red Blood Count 4.13 L Hemoglobin 13.5 L Hematocrit 38.4 L Mean Corpuscular Volume 93.0 Mean Corpuscular Hemoglobin 32.7 Mean Corpuscular Hemoglobin Concent 35.2 Red Cell Distribution Width 12.4 Platelet Count 210 Mean Platelet Volume 10.5 H Neutrophils % 89.5 H Lymphocytes % 4.6 L Monocytes % 5.3 Eosinophils % 0.0 Basophils % 0.1 Nucleated Red Blood Cells % 0.0 Neutrophils # 13.9 H Lymphocytes # 0.7 L Monocytes # 0.8 Eosinophils # 0.0 Basophils # 0.0 Nucleated Red Blood Cells # 0.0 Medications Medications Current Medications Ondansetron HCl (Zofran Inj) 4 mg Q6H PRN IV NAUSEA AND/OR VOMITING; Start at 19:30 Acetaminophen (Tylenol Tab) 650 mg Q6H PRN PO PAIN LEVEL 1-3 OR FEVER; Start 07/10/17 at 19:30 Acetaminophen/ Hydrocodone Bitart ([place] (5/325)) 1 tab Q6H PRN PO MODERATE PAIN LEVEL 4-6; Start 07/10/17 at 19:30 Morphine Sulfate (morphine) 2 mg Q4H PRN IV SEVERE PAIN LEVEL 7-10; Start at 19:30 Docusate Sodium (Colace) 100 mg Q12H PRN PO CONSTIPATION; Start 07/10/17 at 19 :30 Magnesium Hydroxide (Milk Of Mag) 30 ml DAILY PRN PO CONSTIPATION; Start 07/10 at 19:30 Sodium Biphosphate/ Sodium Phosphate (Fleet Enema) [address] CONSTIPATION; Start 07/10/17 at 19:30 Pantoprazole (Protonix Tab) 40 mg DAILY@06 PO Last administered on 07/11/17t 06:04; Admin Dose 40 MG; Start 07/11/17 at 06:00 Lorazepam (Ativan) 0.5 mg Q6H PRN IV ANXIETY; Start 07/10/17 at 19:30 Hydralazine HCl (Apresoline) 10 mg Q6H PRN IV ELEVATED BLOOD PRESSURE; Start 07/10/17 at 19:30 Nitroglycerin (Nitroglycerin (Sl Tab) 0.4 Mg) 1 tab Q5M PRN SL ANGINA; Start 07/10/17 at 19:30 Ondansetron HCl (Zofran Inj) 4 mg Q6H PRN IV NAUSEA AND/OR VOMITING; Start at 20:00 Acetaminophen (Tylenol Tab) 650 mg Q6H PRN PO PAIN LEVEL 1-3 OR FEVER; Start 07/10/17 at 20:00 Ibuprofen (Motrin) 600 mg Q6H PRN PO PAIN LEVEL 1-3; Start 07/10/17 at 20:00 Morphine Sulfate (morphine) 2 mg Q2H PRN IV PAIN LEVEL 8-10; Start 07/10/17 at 20:00 Acetaminophen/ Hydrocodone Bitart ([place] (5/325)) 1 tab Q6H PRN PO PAIN LEVEL 4 -7; Start 07/10/17 at 20:00 Enoxaparin Sodium (Lovenox) 40 mg DAILY@07 SC Last administered on 07/11/17t 06:10; Admin Dose 40 MG; Start 07/11/17 at 07:00 Influenza Virus Vaccine (Fluzone) 0.5 ml ONCE ONCE IM* ; Start 07/12/17 at 09: 00; Stop 07/12/17 at 09:01 KIM MORGAN NP Jul 11, 2017 11:36
[2017-07-11] MEDS: SOD CHLORIDE 0.45% 1,000 ML IV SCH (12:42)
[2017-07-11 19:37] VITALS: BP 107/60; RESP 18
[2017-07-12 02:00] VITALS: BP 107/58; RESP 20
[2017-07-12] MEDS: SOD CHLORIDE 0.45% 1,000 ML IV SCH (02:27)
[2017-07-12 05:52] LABS: BASOPHILS % 0.1 % (0.0-2.0); EOSINOPHILS # 0.1 10^3/ul (0.0-0.5); HEMATOCRIT 36.5 % (42.0-52.0); LYMPHOCYTES # 3.3 10^3/ul (0.8-2.9); LYMPHOCYTES % 40.5 % (18.0-55.0); MEAN CORPUSCULAR HEMOGLOBIN 33.2 pg (29.0-33.0); MEAN CORPUSCULAR HGB CONC 35.6 g/dl (32.0-37.0); MEAN CORPUSCULAR VOLUME 93.1 fl (72.0-104.0); MEAN PLATELET VOLUME 10.3 fl (7.4-10.4); MONOCYTE # 0.7 10^3/ul (0.3-0.9); MONOCYTES % 8.7 % (0.0-13.0); NEUTROPHILS % 49.5 % (30.0-74.0); PLATELET COUNT 179 10^3/UL (140-415); RED BLOOD COUNT 3.92 10^6/ul (4.70-6.10); RED CELL DISTRIBUTION WIDTH 12.6 % (11.5-14.5); WHITE BLOOD COUNT 8.1 10^3/ul (4.8-10.8)
[2017-07-12] MEDS: PANTOPRAZOLE (EC) 40 MG TAB PO SCH (06:13)
[2017-07-12] MEDS: ENOXAPARIN 40 MG/0.4 ML SYG SC SCH (06:15)
[2017-07-12 06:20] LABS: CALCIUM 9.1 mg/dl (8.4-10.2); CREATININE 0.78 mg/dl (0.61-1.24); POTASSIUM 3.8 mmol/L (3.5-5.1)
[2017-07-12 08:26] VITALS: BP 104/64; RESP 20
[2017-07-12] MEDS ORDERED: INFLUENZA VIRUS VACCINE 0.5 ML (DISPENSING) IM* ONE (09:00)
--- NOTE | 2017-07-12 12:57 | PDOCDIS ---
Discharge Instructions CONDITION Patient Condition: Stable HOME CARE INSTRUCTIONS: Diet Instructions: Regular FOLLOW UP/APPOINTMENTS Follow-up Plan Follow-up with Dr. Perdue in 1 week. [address] [place] [address] Office 1.Follow up with primary care physician in 1 week If you don't have one please let someone know, we can give you resources that may help you pick one. You may also call your insurance company to assign one to you. Review your medication list with your nurse before leaving and if you need new prescriptions please let your nurse know. I may have made changes to your home medications or given you new prescriptions, please let your primary doctor know as well. Stay compliant with your medications and report any side effects to your PCP or pharmacist. Return to the ER if you have any concerns and cannot reach your doctors or call your insurance company, they usually have a nurse that can help you. 2. Call 911 or go to the nearest emergency room if experiencing loss of consciousness, dizziness, chest pain, shortness of breath, vomiting/abdominal pain, speech difficulties, motor weakness or any unusual symptoms. Post operative Instructions *Do not lift anything more than 25 pounds for 6 to 8 weeks *Do not swim or take hot tub bath for 2weeks *Remove dressing and May shower-Use mild soap around site and pat dry *If you notice any oozing, bleeding or other drainage or having fever or chills from site please contact Surgeon's office-If unable to get office, you may go to nearest emergency room KIM MORGAN NP Jul 12, 2017 12:57
[2017-07-12] MEDS ORDERED: OXYC-279 PO (12:59)
[2017-07-12] MEDS ORDERED: DOCU-144 PO (12:59)
--- NOTE | 2017-07-12 14:23 | DS ---
Date/Time of Note Date/Time of Note DATE: 07/12/17 TIME: 14:23 Discharge Summary Admission/Discharge Info Admit Date/Time Jul 10, 2017 at 18:57 Discharge Date/Time Discharge Diagnosis 22-year-old male with no significant past medical history, who presented to the emergency room with abdominal pain found to have acute appendicitis. 1. Acute appendicitis. Status post laparoscopic appendectomy on 07/10/2017. 2. Leukocytosis secondary to #1. RESOLVED. Patient Condition: Stable Consults , surgery Procedures 07/10/2017: Abdominal US. Ultrasound findings suspicious for acute appendicitis. 07/10/2017:Laparoscopic appendectomy. Hospital Course this is a 22-year-old male with no significant past medical history, who presented to the emergency room for evaluation of sudden onset of right lower abdominal pain associated with nausea and nonbilious, nonbloody vomiting. In the emergency room, ultrasound abdomen was suggestive of acute appendicitis and patient was admitted. Patient was continued on pain medications, IV fluids and broad-spectrum IV antibiotics. Patient had surgery evaluation. On 07/10/2017, patient had undergone laparoscopic appendectomy. Patient tolerated procedure well. Patient had a stable postoperative course. He was able to tolerate diet and activities. At this time, there is no further inpatient workup indicated. Patient also did not have any further leukocytosis or signs of sepsis. He did not require any further antibiotics. Patient is medically stable for discharge with outpatient follow-up. Disposition: Home. Approximately 60 minute was spent in coordinating the discharge on this patient. Patient verbalized discharge instructions. Patient was seen in collaboration with . Home Meds Active Scripts Docusate Sodium* (Colace*) 100 Mg Capsule, 100 MG PO BID, #60 CAP Prov:KIM MORGAN [employer] 07/12/17 Oxycodone HCl/Acetaminophen (Percocet 5-325 mg Tablet) 1 Each Tablet, 1 EACH PO Q6, #30 TAB Prov:KIM MORGAN [employer] 07/12/17 Follow-up Plan Follow-up with Dr. Perdue in 1 week. [address] [place] [address] Office 1.Follow up with primary care physician in 1 week If you don't have one please let someone know, we can give you resources that may help you pick one. You may also call your insurance company to assign one to you. Review your medication list with your nurse before leaving and if you need new prescriptions please let your nurse know. I may have made changes to your home medications or given you new prescriptions, please let your primary doctor know as well. Stay compliant with your medications and report any side effects to your PCP or pharmacist. Return to the ER if you have any concerns and cannot reach your doctors or call your insurance company, they usually have a nurse that can help you. 2. Call 911 or go to the nearest emergency room if experiencing loss of consciousness, dizziness, chest pain, shortness of breath, vomiting/abdominal pain, speech difficulties, motor weakness or any unusual symptoms. Post operative Instructions *Do not lift anything more than 25 pounds for 6 to 8 weeks *Do not swim or take hot tub bath for 2weeks *Remove dressing and May shower-Use mild soap around site and pat dry *If you notice any oozing, bleeding or other drainage or having fever or chills from site please contact Surgeon's office-If unable to get office, you may go to nearest emergency room Primary Care Provider Care Physician No Primary Pending Labs Laboratory Tests Test 07/12/17 05:32 White Blood Count 8.110^3/ul (4.8-10.8) Red Blood Count 3.9210^6/ul (4.70-6.10) Hemoglobin 13.0g/dl (14.0-18.0) Hematocrit 36.5% (42.0-52.0) Mean Corpuscular Volume 93.1fl (72.0-104.0) Mean Corpuscular Hemoglobin 33.2pg (29.0-33.0) Mean Corpuscular Hemoglobin Concent 35.6g/dl (32.0-37.0) Red Cell Distribution Width 12.6% (11.5-14.5) Platelet Count 15479^3/UL (140-415) Mean Platelet Volume 10.3fl (7.4-10.4) Neutrophils % 49.5% (30.0-74.0) Lymphocytes % 40.5% (18.0-55.0) Monocytes % 8.7% (0.0-13.0) Eosinophils % 1.0% (0.0-7.0) Basophils % 0.1% (0.0-2.0) Nucleated Red Blood Cells % 0.0/100WBC (0.0-0.0) Neutrophils # 4.010^3/ul (1.6-7.5) Lymphocytes # 3.310^3/ul (0.8-2.9) Monocytes # 0.710^3/ul (0.3-0.9) Eosinophils # 0.110^3/ul (0.0-0.5) Basophils # 0.010^3/ul (0.0-0.1) Nucleated Red Blood Cells # 0.010^3/ul (0.0-0.0) Sodium Level 143mmol/L (135-144) Potassium Level 3.8mmol/L (3.5-5.1) Chloride Level 108mmol/L (97-110) Carbon Dioxide Level 29mmol/L (21-31) Anion Gap 10 (8-16) Blood Urea Nitrogen 10mg/dl (7-20) Creatinine 0.78mg/dl (0.61-1.24) Glucose Level 90mg/dl (70-220) Calcium Level 9.1mg/dl (8.4-10.2) Thyroid Stimulating Hormone (TSH) 0.322MIU/L (0.465-4.680) KIM MORGAN [employer] Jul 12, 2017 14:23
== END 2017-07-12 16:05 | disposition home or self-care (01) | DRG 343 ==
LOC: FTE 16:18 → PP2 18:57
PROVIDERS: ADMIT Internal Medicine; ATTEND Internal Medicine
PROC: 0DTJ4ZZ Resection of Appendix, Percutaneous Endoscopic Approach (ICD-10-PCS; principal; 2017-07-10 19:00)
DX: K35.80 Unspecified acute appendicitis (principal); E02 Subclinical iodine-deficiency hypothyroidism; Z72.0 Tobacco use; D72.829 Elevated white blood cell count, unspecified
CPT/HCPCS: 76705; 80048; 80053; 80061; 81001; 83036; 83690; 83735; 84100; 84132; 84439; 84443; 84481; 85025; 85610; 85730; 88304; 90686; J0131; J0690; J0696; J1100; J1650; J1885; J2175; J2250; J2270; J2405; J2765; J2795; J3010; J3480; J7030

== ENCOUNTER 2018-02-11 23:41 | Emergency (ER) | END 2018-02-12 03:17 | disposition home or self-care (01) ==